=== PATIENT | female | born 1995 | race Two or more races ===

== ENCOUNTER 2020-10-05 21:57 | Emergency (ER) | payer SELFPAY ==
[~2020-10-05] VITALS: Ht 162.6 cm; Wt 97.2 kg
[2020-10-05 22:21] VITALS: BP 134/82
--- NOTE | 2020-10-05 23:22 | RAD ---
Right hand 3 views. HISTORY: Pain, injury 3 views were taken of the right hand. There is a transverse fracture through the mid right fifth meta carpal. There is mild angulation with a cortex width of displacement. IMPRESSION: 1. Fracture right fifth metacarpal. Electronically signed by: Ori Shaw MD (10/05/2020 11:20 PM) [facility]
[2020-10-05] MEDS ORDERED: TRAM-48 PO (23:30)
--- NOTE | 2020-10-05 23:31 | PHYS DOC ---
Past Medical History Past Surgical History: No Surgical History General Adult EDM: Chief Complaint: HAND PROBLEM HPI: HPI: Patient is a 25 year old male presents for evaluation for injury to right hand. Patient was cleaning the garage when object struck her right hand. Patient has sudden onset of pain. On exam there is swelling along the fourth and fifth metacarpal. Review of Systems: Review of Systems: Review of systems: Constitutional symptoms- No fever, no chills. Eyes- No Discharge, No Visual Loss Respiratory symptoms- No shortness of breath, No wheezing, No Dyspnea on Exertion Cardiovascular Systems; No chest pain, No Palpitations, No syncope Gastrointestinal symptoms: NO abdominal pain, no nausea, no vomiting or diarrhea. Genitourinary symptoms: No dysuria. Musculoskeletal symptoms: No back pain Positive extremity pain. NEUROLOGICAL Symptoms: No headache, no generalized weakness; No focal Weakness Skin: No rash. Heart Score: C/O Chest Pain: N/A Risk Factors: Risk Factors: DM, Current or recent (<one month) smoker, HTN, HLP, family history of CAD, obesity. Risk Scores: Score 0 - 3: 2.5% MACE over next 6 weeks - Discharge Home Score 4 - 6: 20.3% MACE over next 6 weeks - Admit for Clinical Observation Score 7 - 10: 72.7% MACE over next 6 weeks - Early Invasive Strategies Allergies: Allergies: Allergies Coded Allergies Type Severity Reaction Last Updated Verified No Known Drug Allergies 10/05/20 No Physical Exam: PE: Chest x-ray general: alert, no acute distress. Skin: warm, dry and intact. HENT: bilateral external ears normal, oropharynx moist, nose normal. Head:: Normocephalic, atraumatic. Neck: Trachea midline. Eyes: EOMI, Normal conjunctiva, No drainage CARDIOVASCULAR: Regular rate and rhythm RESPIRATORY: No respiratory distress Back: Full range of motion. Skin: Warm, dry, no erythema, no rash. MUSCULOSKELETAL: Full range of motion of bilateral upper and lower extremities. Swelling along the fourth and fifth metacarpal on the right. Fingers are neurovascularly intact GASTROINTESTINAL: Abdomen soft without rebound or guarding. NEUROLOGICAL: Alert and noted to person, place and time. No neurological deficits observed Psychiatric: Cooperative. Normal judgment Current Patient Data: Vital Signs: Vital Signs Date Time Temp Pulse Resp B/P (MAP) Pulse Ox O2 Delivery O2 Flow Rate FiO2 10/05/20 22:21 98.6 81 18 134/82 98 Room Air 98.6 EKG: EKG: [] Radiology/Procedures: Radiology/Procedures: [] Impression: HISTORY: Pain, injury 3 views were taken of the right hand. There is a transverse fracture through the mid right fifth metacarpal. There is mild angulation with a cortex width of displacement. IMPRESSION: 1. Fracture right fifth metacarpal. Course & Med Decision Making: Course & Med Decision Making Pertinent Labs and Imaging studies reviewed. (See chart for details) [] Patient was evaluated for chief complaint. X-ray confirms a fracture to the fifth metacarpal. Patient treated with ibuprofen. She was placed in a ulnar gutter boxer splint. Patient referred to orthopedics. Patient advised to call to schedule appointment. Splint applied by nursing. NVI post application. [place] Disclaimer: [place] Disclaimer: This electronic medical record was generated, in whole or in part, using a voice recognition dictation system. Departure Departure Impression: Primary Impression: Closed fracture of 5th metacarpal Disposition: 01 HOME / SELF CARE / HOMELESS Condition: STABLE Referrals: NO PCP (PCP) Patient Instructions: Closed Reduction for Metacarpal Fracture or Dislocation Scripts Tramadol Hcl (ULTRAM) 50 Mg Tablet 1 TAB PO PRN Q6HRS PRN for pain MDD 4 Tablet(s) for 7 Days, #28 TAB 0 Refills Prov: FAITH THOMPSON DO 10/05/20 FAITH THOMPSON DO Oct 05, 2020 23:31
[2020-10-06] MEDS ORDERED: IBUPROFEN 200 MG TABLET. PO ONE
== END 2020-10-05 23:43 | disposition home or self-care (01) ==
LOC: ER 21:57
DX: S62.306A Unspecified fracture of fifth metacarpal bone, right hand, initial encounter for closed fracture (principal); W22.8XXA Striking against or struck by other objects, initial encounter; Y93.89 Activity, other specified; Y92.89 Other specified places as the place of occurrence of the external cause; Y99.8 Other external cause status
CPT/HCPCS: 29125; 73130; 99283